=== PATIENT | female | born 1960 | race African-American/Black ===

== ENCOUNTER 2018-01-04 15:01 | Emergency (ER) | payer MEDICAID ==
[~2018-01-04] VITALS: Ht 172.7 cm; Wt 55.8 kg
[~2018-01-04 15:01] MED LIST: TYLENOL EXTRA500 MG ORAL
--- NOTE | 2018-01-04 15:35 | Emergency Room Report ---
History of Present Illness General Chief Complaint: Pain Source: Patient Present Illness HPI 57-year-old female presents to the emergency department complaining of progressive left-sided anterior chest pain x3 days. Patient reports pain with respirations and coughing. Patient states she has a history of high blood pressure and hyperlipidemia for which she has weaned herself off of her medication which she estimates as well a long time ago "patient states her last physical examination and blood work was performed at her previous visit here when she was admitted. She denies regular office visits with her primary care provider. She denies swelling of the lower extremities she reports intermittent mucus production with coughing that she reports to be from postnasal drainage. Denies claudication. Denies taking blood thinning medications. She reports hot flashes and chills however denies fevers she states that she has been seen symptoms of menopause. She states that she believes she sustained rib dislocation approximately 6 months ago when reaching out of a car window at drive[place]through. Patient denies medical evaluation and states that her symptoms resolved until now. Denies Palpitations, LOC, AMS, dizziness, Changes in Vision, Sensation, paresthesias, or a sudden severe headache. Allergies: Coded Allergies: HYDROCODONE (Verified Allergy, Unknown, SWELLING OF FACE, 05/21/10) METOCLOPRAMIDE (Verified Allergy, Unknown, SWELLING OF FACE, 05/21/10) Patient History Past Medical History: see triage record, HTN, other - DVT Past Surgical History: none Now: No Reviewed Nursing Documentation: PMH: Agreed, PSxH: Agreed Nursing Documentation-PMH Past Medical History: No History, Except For Hx Cardiac Problems: Yes Hx Hypertension: Yes Hx Diabetes: Yes Hx Cancer: No Hx Gastrointestinal Problems: Yes Hx Neurological Problems: No Review of Systems All Other Systems: negative except mentioned in HPI Physical Exam Vital Signs Date Time Temp Pulse Resp B/P (MAP) Pulse Ox O2 Delivery O2 Flow Rate FiO2 01/04/18 15:04 98.3 77 18 154/86 97 Room Air 98.2 Sp02 EP Interpretation: reviewed, normal General Appearance: alert, GCS 15, non-toxic, mild distress Head: normocephalic, atraumatic ENT: hearing grossly normal, normal voice Neck: full range of motion Respiratory: lungs clear, normal breath sounds, no rhonchi, no wheezing, stridor, other - TTP to the left lower sternum, and left lower anterior ribs, no lateral rib ttp. no decreased breath sounds Cardiovascular #1: regular rate, rhythm, no edema Gastrointestinal: normal bowel sounds, non tender, soft Musculoskeletal: back normal, gait/station normal, normal range of motion, tender - TTP to the anterior ribcage on the lower left side. Neurologic: alert, oriented x3, responsive, motor strength/tone normal, sensory intact, speech normal, grossly normal Psychiatric: judgement/insight normal Skin: normal color, no rash, warm/dry, well hydrated Medical Decision Making PA Attestation Dr. zhang is my supervising Physician whom patient management has been discussed with. Diagnostic Impression: Primary Impression: Chest pain Qualified Codes: R07.1 - Chest pain on breathing Additional Impression: Chest wall pain ER Course 57-year-old female presents to the emergency department complaining of progressive left-sided anterior chest pain x3 days. Patient reports pain with respirations and coughing. Patient states she has a history of high blood pressure and hyperlipidemia for which she has weaned herself off of her medication which she estimates as well a long time ago "patient states her last physical examination and blood work was performed at her previous visit here when she was admitted. She denies regular office visits with her primary care provider. She denies swelling of the lower extremities she reports intermittent mucus production with coughing that she reports to be from postnasal drainage. Denies claudication. Denies taking blood thinning medications. She reports hot flashes and chills however denies fevers she states that she has been seen symptoms of menopause. She states that she believes she sustained rib dislocation approximately 6 months ago when reaching out of a car window at drive[place]through. Patient denies medical evaluation and states that her symptoms resolved until now. Denies Palpitations, LOC, AMS, dizziness, Changes in Vision, Sensation, paresthesias, or a sudden severe headache. Ddx considered but are not limited to SC, pneumonia, contusion, costochondritis , PE, ACS, Shoulder strain, Chest wall contusion. aortic dissection. Vital signs: are WNL, pt. is afebrile H&PE are most consistent with CP in the setting of multiple cardiac risk factors, and hx of DVT. ORDERS: - EK bpm NSR , no acute ST changes -CBC: unremarkable -CMP: unremarkable -BNP: 124 -WNL -Troponin: 0.00 CXR: Unremarkable -CTA Chest with Contrast: Negative for PE. ED INTERVENTIONS: - PT. placed on cardiac monitoring. - Toradol IV - Zofran IV----PT. began vomiting after IV contrast -Ativan 1mg IV----PT. began vomiting after IV contrast DISCHARGE: At this time pt. is stable for d/c to home. Will provide printed patient care instructions, and any necessary prescriptions. Care plan and follow up instructions have been discussed with the patient prior to discharge. Labs Test 01/04/18 15:55 White Blood Count 7.4 K/UL (4.8-10.8) Red Blood Count 4.70 M/UL (4.20-5.40) Hemoglobin 14.4 G/DL (12.0-16.0) Hematocrit 43.8 % (37.0-47.0) Mean Corpuscular Volume 93 FL (80-99) Mean Corpuscular Hemoglobin 30.7 PG (27.0-31.0) Mean Corpuscular Hemoglobin Concent 33.0 G/DL (32.0-36.0) Red Cell Distribution Width 12.5 % (11.6-14.8) Platelet Count 258 K/UL (150-450) Mean Platelet Volume 7.1 FL (6.5-10.1) Neutrophils (%) (Auto) 59.4 % (45.0-75.0) Lymphocytes (%) (Auto) 31.8 % (20.0-45.0) Monocytes (%) (Auto) 7.1 % (1.0-10.0) Eosinophils (%) (Auto) 0.6 % (0.0-3.0) Basophils (%) (Auto) 1.1 % (0.0-2.0) Sodium Level 140 MMOL/L (136-145) Potassium Level 4.0 MMOL/L (3.5-5.1) Chloride Level 104 MMOL/L (98-107) Carbon Dioxide Level 31 MMOL/L (21-32) Anion Gap 5 mmol/L (5-15) Blood Urea Nitrogen 11 mg/dL (7-18) Creatinine 0.8 MG/DL (0.55-1.30) Estimat Glomerular Filtration Rate > 60 mL/min (>60) Glucose Level 96 MG/DL (74-106) Calcium Level 9.8 MG/DL (8.5-10.1) Total Bilirubin 0.7 MG/DL (0.2-1.0) Aspartate Amino Transf (AST/SGOT) 15 U/L (15-37) Alanine Aminotransferase (ALT/SGPT) 13 U/L (12-78) Alkaline Phosphatase 75 U/L (46-116) Total Creatine Kinase 80 U/L (26-308) Troponin I 0.000 ng/mL (0.000-0.056) Pro-B-Type Natriuretic Peptide 109 pg/mL (0-125) Total Protein 8.3 G/DL (6.4-8.2) Albumin 3.7 G/DL (3.4-5.0) Globulin 4.6 g/dL Albumin/Globulin Ratio 0.8 (1.0-2.7) EKG Diagnostic Results EP Interpretation: Dr. Garcia Rate: normal - 66 bpm Rhythm: NSR ST Segments: no acute changes ASA given to the pt in ED: No PA Scribe Text - EK BPM NSR - no acute ST changes reviewed by Dr. Garcia, this interpretation was scribed by EFRAIN Dickerson Chest X-Ray Diagnostic Results Chest X-Ray Diagnostic Results : Chest X-Ray Ordered: Yes # of Views/Limited/Complete: 1 View Indication: Chest Pain EP Interpretation: Yes PA Xray: Interpretation reviewed, by supervising MD, and agrees with findings. Interpretation: no consolidation, no effusion, no pneumothorax, no acute cardiopulmonary disease Impression: No acute disease Electronically Signed by: Samantha Dickerson PA-C Last Vital Signs Date Time Temp Pulse Resp B/P (MAP) Pulse Ox O2 Delivery O2 Flow Rate FiO2 01/04/18 15:04 98.3 77 18 154/86 97 Room Air 98.2 Disposition: HOME, SELF-CARE Condition: Stable Scripts Ondansetron Odt* (ZOFRAN ODT*) 4 Mg Tab.rapdis 4 MG ORAL Q6H Y for Nausea & Vomiting, #20 TAB Prov: Samantha Dickerson P.A. 01/04/18 Diclofenac Sod* (VOLTAREN*) 50 Mg Tablet.dr 50 MG ORAL THREE TIMES A DAY, #30 TAB Prov: Samantha Dickerson P.A. 01/04/18 Patient Instructions: Chest Contusion, [id number], Chest Wall Pain, Nonspecific Chest Pain, [id number] Additional Instructions: Take medications as directed. Follow up with a Primary Care Provider in 3-5 days, even if your symptoms have resolved. --Please review list of primary care clinics, if you do not already have a primary care provider Return sooner to ED if new symptoms occur, or current symptoms become worse. - Please note that this Emergency Department Report was dictated using [employer] worker technology software, occasionally this can lead to erroneous entry secondary to interpretation by the dictation equipment. Samantha Dickerson Jan 04, 2018 15:35
[2018-01-04 15:53] VITALS: BP 147/77
[2018-01-04 16:03] LABS: BASOPHILS % (AUTO) 1.1 % (0.0-2.0); EOSINOPHILS % (AUTO) 0.6 % (0.0-3.0); HEMATOCRIT 43.8 % (37.0-47.0); HEMOGLOBIN 14.4 G/DL (12.0-16.0); LYMPHOCYTES % (AUTO) 31.8 % (20.0-45.0); MEAN CORPUSCULAR VOLUME 93 FL (80-99); MONOCYTES % (AUTO) 7.1 % (1.0-10.0); NEUTROPHILS % (AUTO) 59.4 % (45.0-75.0); PLATELET COUNT 258 K/UL (150-450); RED CELL DISTRIBUTION WIDTH 12.5 % (11.6-14.8); WHITE BLOOD COUNT 7.4 K/UL (4.8-10.8)
[2018-01-04 16:39] LABS: ANION GAP 5 mmol/L (5-15); BLOOD UREA NITROGEN 11 mg/dL (7-18); CALCIUM 9.8 MG/DL (8.5-10.1); CARBON DIOXIDE 31 MMOL/L (21-32); CHLORIDE 104 MMOL/L (98-107); CREATININE 0.8 MG/DL (0.55-1.30); SODIUM 140 MMOL/L (136-145)
[2018-01-04 16:51] LABS: ALANINE AMINOTRANSFERASE 13 U/L (12-78); ALBUMIN 3.7 G/DL (3.4-5.0); ALBUMIN/GLOBULIN RATIO 0.8 (1.0-2.7); ALKALINE PHOSPHATASE 75 U/L (46-116); ASPARTATE AMINO TRANSFERASE 15 U/L (15-37); BILIRUBIN,TOTAL 0.7 MG/DL (0.2-1.0); CREATINE KINASE 80 U/L (26-308)
[2018-01-04] MEDS ORDERED: Ketorolac 60mg Inj IV ONE (17:45)
[2018-01-04] MEDS ORDERED: LORazepam Inj 2mg/ml 1ml IV ONE (17:45)
[2018-01-04] MEDS ORDERED: ZOFRAN ODT4 MG ORAL (18:32)
[2018-01-04] MEDS ORDERED: DICLOFENAC SODI50 MG ORAL (18:32)
[2018-01-04 19:22] VITALS: BP 130/79
--- NOTE | 2018-01-05 08:52 | Diagnostic Imaging Report ---
ndication: Left anterior chest pain x3 days. Positive history of deep venous thrombosis Technique: IV administration nonionic contrast. Spiral acquisitions obtained from the lung bases to the lung apices. Multiplanar and 3-D reconstructions were generated. Total dose length product 926.76 mGycm. CTDIvol(s) 13.44 mGy. Dose reduction achieved using automated exposure control Comparison: none Findings: There is good quality opacification of the pulmonary arteries. No intraluminal filling defects or other findings to suggest acute pulmonary embolus demonstrated. No thoracic aortic aneurysm or dissection. Normal caliber pulmonary arteries. No evidence of cardiomegaly or right ventricular dilatation. The lungs demonstrate bilateral bullous changes. No infiltrates, effusions, congestion, masses, or nodules demonstrated. No mediastinal or hilar mass or adenopathy. Unremarkable thyroid. No axillary or chest wall mass or adenopathy. Somewhat dilated inferior vena cava and hepatic veins noted. The bones are unremarkable. The included upper abdominal anatomy is unremarkable. Impression: Negative for evidence of acute pulmonary embolus or other acute pulmonary process Evidence of bullous COPD Mild distention of the inferior vena cava and hepatic veins, could indicate central venous hypertension The CT scanner at [facility] is accredited by the [employer] and the scans are performed using protocols designed to limit radiation exposure to as low as reasonably achievable to attain images of sufficient resolution adequate for diagnostic evaluation.
--- NOTE | 2018-01-05 08:53 | Diagnostic Imaging Report ---
Indication: Chest pain Technique: One view of the chest Comparison: 06/28/2009 Findings: Lungs and pleural spaces are clear. Heart size is normal. No significant change Impression: No acute process
--- NOTE | 2018-01-06 08:36 | Cardiology Report ---
APPROVED REPORT EKG Measurement Heart [id number] Normal sinus rhythm Right atrial enlargement Voltage criteria for left ventricular hypertrophy Abnormal ECG
== END 2018-01-04 19:25 | disposition home or self-care (01) ==
LOC: EMR 15:41
DX: R07.89 Other chest pain (principal); I10 Essential (primary) hypertension; E11.9 Type 2 diabetes mellitus without complications; Z88.8 Allergy status to other drugs, medicaments and biological substances
CPT/HCPCS: 36415; 71045; 71275; 80053; 82550; 83880; 84484; 85025; 93005; 96374; 96375; 99284; J2405; Q9967

== ENCOUNTER 2018-06-09 21:27 | Emergency (ER) | payer MEDICAID ==
[~2018-06-09] VITALS: Ht 172.7 cm; Wt 59.0 kg
[~2018-06-09 21:27] MED LIST changes: +DICLOFENAC SODI50 MG ORAL; +ZOFRAN ODT4 MG ORAL
[2018-06-09] MEDS ORDERED: PHENERGAN SUPP25 MG RECTAL (21:34)
[2018-06-09] MEDS ORDERED: TYLENOL EXTRA500 MG ORAL (22:40)
[2018-06-09 22:57] VITALS: BP 0/0
--- NOTE | 2018-06-10 01:10 | Emergency Room Report ---
History of Present Illness General Chief Complaint: Lower Extremity Injury Source: Patient Present Illness HPI 58-year-old female presents ED complaining of pain to left foot. States that 2 days ago she accidentally kicked a wooden fence with her left foot. Notes pain to her toes on left foot. Pain is throbbing, 7 out of 10, nonradiating. Denies any other injuries. No other aggravating relieving factors. Denies any other associated symptoms Allergies: Coded Allergies: HYDROCODONE (Verified Allergy, Unknown, SWELLING OF FACE, 05/21/10) METOCLOPRAMIDE (Verified Allergy, Unknown, SWELLING OF FACE, 05/21/10) Patient History Past Medical History: DM, HTN, ulcer Past Surgical History: none Pertinent Family History: none Social History: Denies: smoking, alcohol use, drug use Last Menstrual Period: n/a Now: No Immunizations: UTD Reviewed Nursing Documentation: PMH: Agreed; PSxH: Agreed Nursing Documentation-PMH Hx Cardiac Problems: Yes Hx Hypertension: Yes Hx Diabetes: Yes Hx Cancer: No Hx Gastrointestinal Problems: Yes - ulcer Hx Neurological Problems: No Review of Systems All Other Systems: negative except mentioned in HPI Physical Exam Vital Signs Date Time Temp Pulse Resp B/P (MAP) Pulse Ox O2 Delivery O2 Flow Rate FiO2 06/09/18 21:30 98.4 85 16 124/77 96 Room Air 98.4 Sp02 EP Interpretation: reviewed, normal General Appearance: no apparent distress, alert, GCS 15, non-toxic Head: normocephalic Eyes: bilateral eye normal inspection, bilateral eye PERRL ENT: normal ENT inspection Neck: normal inspection Respiratory: normal inspection Cardiovascular #1: normal inspection Gastrointestinal: normal inspection Rectal: deferred Genitourinary: no CVA tenderness Musculoskeletal: tender - L 4th toe Neurologic: alert, oriented x3, responsive, motor strength/tone normal, sensory intact, speech normal Psychiatric: normal inspection Skin: normal inspection Lymphatic: normal inspection Procedures Splinting Splinting : Consent: Verbal Pre-Made Type: sam taping Pre-Proc Neuro Vasc Exam: normal Post-Proc Neuro Vasc Exam: normal Patient Tolerated: Well Complications: None Medical Decision Making Diagnostic Impression: Primary Impression: Toe contusion Qualified Codes: S90.122A - Contusion of left lesser toe(s) without damage to nail, initial encounter ER Course Hospital Course 58-year-old F presents to ED complaining of L toes pain Differential diagnoses include: Fracture, dislocation, sprain, contusion Clinical course Patient placed on stretcher. After initial history and physical, I ordered pain medications and Xrays of L foot Xrays prelim read shows no acute fracture/dislocation. 3rd/4th toe sam taped. patient safe for discharge pending close outpatient followup Diagnosis - toe contusion Stable and discharged to home with prescription for Tylenol. apply ice, keep elevated. weight bear as tolerated. Followup with PMD. Return to ED if symptoms recur or worsen Other X-Ray Diagnostic Results Other X-Ray Diagnostic Results : X-Ray ordered: L foot # of Views/Limited Vs Complete: 3 View Indication: Pain EP Interpretation: Yes Interpretation: no dislocation, no soft tissue swelling, no fractures Impression: No acute disease Electronically Signed by: Electronically signed by Johny Garcia MD Last Vital Signs Date Time Temp Pulse Resp B/P (MAP) Pulse Ox O2 Delivery O2 Flow Rate FiO2 06/09/18 22:57 0/0 06/09/18 22:35 98.4 06/09/18 21:30 85 16 96 Room Air Status: improved Disposition: HOME, SELF-CARE Condition: Stable Scripts Acetaminophen* (TYLENOL EXTRA STRENGTH*) 500 Mg Tablet 500 MG ORAL Q8H PRN for Prn Headache/Temp > 101, #30 TAB 0 Refills Prov: Johny Garcia MD 06/09/18 Referrals: [facility],REFERRING (PCP) Patient Instructions: Foot Contusion, Uown-gu-Valo Johny Garcia MD Jun 10, 2018 01:10
--- NOTE | 2018-06-10 11:40 | Diagnostic Imaging Report ---
Indication: Pain in third and fourth toes Technique: 3 views of the left toes Comparison: none Findings: No acute fractures. No dislocations. The joint spaces are preserved. Impression: Negative This agrees with the preliminary interpretation provided by the emergency room physician
== END 2018-06-09 22:57 | disposition home or self-care (01) ==
LOC: EMR 22:00
DX: S90.122A Contusion of left lesser toe(s) without damage to nail, initial encounter (principal); W22.8XXA Striking against or struck by other objects, initial encounter; Y92.9 Unspecified place or not applicable; I10 Essential (primary) hypertension; E11.9 Type 2 diabetes mellitus without complications; Z88.8 Allergy status to other drugs, medicaments and biological substances; Z88.5 Allergy status to narcotic agent; Z87.19 Personal history of other diseases of the digestive system
CPT/HCPCS: 99283

== ENCOUNTER 2018-11-03 21:39 | Emergency (ER) | payer MEDICARE, MEDICAID ==
[~2018-11-03] VITALS: Ht 172.7 cm; Wt 55.3 kg
[~2018-11-03 21:39] MED LIST changes: +PHENERGAN SUPP25 MG RECTAL
[2018-11-03] MEDS ORDERED: ACETAMINOPHEN-1 EAC2 ORAL (21:53)
[2018-11-03] MEDS ORDERED: VALIUM10 MG ORAL (21:53)
[2018-11-03 21:56] VITALS: BP 126/78
[2018-11-03] MEDS ORDERED: Morphine Sulfate 4mg/ml Inj (IV/IM USE ONLY) IVP ONE (22:15)
[2018-11-03] MEDS ORDERED: Isovue-300 100ml vial INJ PRN (22:15)
[2018-11-03 22:43] LABS: APPEARANCE,URINE CLEAR; BILIRUBIN, URINE NEGATIVE (NEGATIVE); COLOR,URINE YELLOW; GLUCOSE, URINE (UA) NEGATIVE (NEGATIVE); KETONES,URINE 1+ (NEGATIVE); LEUKOCYTE ESTERASE ,URINE 1+ (NEGATIVE); NITRITE,URINE NEGATIVE (NEGATIVE); PH,URINE 6 (4.5-8.0); PROTEIN,URINE NEGATIVE (NEGATIVE); UROBILINOGEN,URINE 1 MG/DL (0.0-1.0)
[2018-11-03 22:43] LABS: BASOPHILS % (AUTO) 0.8 % (0.0-2.0); EOSINOPHILS % (AUTO) 0.5 % (0.0-3.0); HEMATOCRIT 40.9 % (37.0-47.0); HEMOGLOBIN 13.3 G/DL (12.0-16.0); MEAN CORPUSCULAR VOLUME 95 FL (80-99); MONOCYTES % (AUTO) 6.2 % (1.0-10.0); NEUTROPHILS % (AUTO) 56.6 % (45.0-75.0); PLATELET COUNT 192 K/UL (150-450); RED BLOOD COUNT 4.29 M/UL (4.20-5.40); RED CELL DISTRIBUTION WIDTH 12.7 % (11.6-14.8)
[2018-11-03 22:52] LABS: ANION GAP 5 mmol/L (5-15); BLOOD UREA NITROGEN 9 mg/dL (7-18); CALCIUM 9.4 MG/DL (8.5-10.1); CARBON DIOXIDE 31 MMOL/L (21-32); CHLORIDE 105 MMOL/L (98-107); CREATININE 0.9 MG/DL (0.55-1.30); POTASSIUM 4.1 MMOL/L (3.5-5.1); SODIUM 141 MMOL/L (136-145)
[2018-11-03 22:57] LABS: ALANINE AMINOTRANSFERASE 15 U/L (12-78); ALBUMIN 3.6 G/DL (3.4-5.0); ALBUMIN/GLOBULIN RATIO 0.8 (1.0-2.7); ALKALINE PHOSPHATASE 60 U/L (46-116); ASPARTATE AMINO TRANSFERASE 13 U/L (15-37); BILIRUBIN,TOTAL 0.9 MG/DL (0.2-1.0)
--- NOTE | 2018-11-03 23:27 | Emergency Room Report ---
History of Present Illness General Chief Complaint: Abdominal Pain Source: Patient Present Illness HPI 58-year-old female presents ED for evaluation. Complaining of abdominal pain starting yesterday. Sharp, 7 out of 10, nonradiating. Localized to right lower quadrant. Comes and goes. Denies nausea or vomiting. Denies fevers or chills. Denies diarrhea. No other aggravating relieving factors. Denies any other associated symptoms Allergies: Coded Allergies: HYDROCODONE (Verified Allergy, Unknown, SWELLING OF FACE, 05/21/10) METOCLOPRAMIDE (Verified Allergy, Unknown, SWELLING OF FACE, 05/21/10) Patient History Past Medical History: DM, HTN, ulcer Past Surgical History: none Pertinent Family History: none Social History: Denies: smoking, alcohol use, drug use Last Menstrual Period: 1 decade ago Now: No Immunizations: UTD Reviewed Nursing Documentation: PMH: Agreed; PSxH: Agreed Nursing Documentation-PMH Hx Cardiac Problems: Yes Hx Hypertension: Yes Hx Diabetes: Yes Hx Cancer: No Hx Gastrointestinal Problems: Yes - ulcer Hx Neurological Problems: No Review of Systems All Other Systems: negative except mentioned in HPI Physical Exam Vital Signs Date Time Temp Pulse Resp B/P (MAP) Pulse Ox O2 Delivery O2 Flow Rate FiO2 11/03/18 21:47 98.4 88 16 131/72 95 Room Air Sp02 EP Interpretation: reviewed, normal General Appearance: no apparent distress, alert, GCS 15, non-toxic Head: normocephalic, atraumatic Eyes: bilateral eye normal inspection, bilateral eye PERRL ENT: hearing grossly normal, normal pharynx, no angioedema, normal voice Neck: full range of motion, supple/symm/no masses Respiratory: chest non-tender, lungs clear, normal breath sounds, speaking full sentences Cardiovascular #1: regular rate, rhythm, no edema Cardiovascular #2: 2+ carotid (R), 2+ carotid (L), 2+ radial (R), 2+ radial (L) , 2+ dorsalis pedis (R), 2+ dorsalis pedis (L) Gastrointestinal: normal bowel sounds, soft, non-distended, no guarding, no rebound, tenderness Rectal: deferred Genitourinary: normal inspection, no CVA tenderness Musculoskeletal: back normal, gait/station normal, normal range of motion, non- tender Neurologic: alert, oriented x3, responsive, motor strength/tone normal, sensory intact, speech normal Psychiatric: judgement/insight normal, memory normal, mood/affect normal, no suicidal/homicidal ideation Reflexes: 3+ bicep (R), 3+ bicep (L), 3+ tricep (R), 3+ tricep (L), 3+ knee (R) , 3+ knee (L) Skin: normal color, no rash, warm/dry, well hydrated Lymphatic: no adenopathy Medical Decision Making Diagnostic Impression: Primary Impression: SMAS (superior mesenteric artery syndrome) Additional Impression: Intractable abdominal pain ER Course Hospital Course 58 yo F presents with abd pain and vomiting Differential diagnoses include: BPH, cystitis, pyelonephritis, kidney stone Clinical course Patient placed on stretcher. cardiac monitor technician. After initial history and physical I ordered labs, IV fluids, UA, pain medication and CT scan Labs - no leukocytosis, Hb/Hct stable, electroytes ok CT abdomen and pelvis - discussed case with Dr Altamirano (surgery); agrees that patient will require admission for serial exams. recommends lactic acid draw Patient continues to have pain but not in significant distress. No guarding or rebound. Abdomen is nonrigid Lactic acid normal Because of insurance patient will be transferred I feel this is a highly complex case requiring extensive working including EKG/ Rhythm strip, Xray/CT/US, Blood/urine lab work, repeat exams while in ED, and administration of strong opiates/narcotics for pain control, admission to hospital or close patient follow up. Diagnosis - SMA syndrome, int[facility] Labs Test 11/03/18 22:05 11/03/18 22:17 Urine Color Yellow Urine Appearance Clear Urine pH 6 (4.5-8.0) Urine Specific [place] 1.015 (1.005-1.035) Urine Protein Negative (NEGATIVE) Urine Glucose (UA) Negative (NEGATIVE) Urine Ketones 1+ (NEGATIVE) Urine Blood Negative (NEGATIVE) Urine Nitrite Negative (NEGATIVE) Urine Bilirubin Negative (NEGATIVE) Urine Urobilinogen 1 MG/DL (0.0-1.0) Urine Leukocyte Esterase 1+ (NEGATIVE) Urine RBC 0-2 /HPF (0 - 2) Urine WBC 2-4 /HPF (0 - 2) Urine Squamous Epithelial Cells Few /LPF (NONE/OCC) Urine Bacteria Few /HPF (NONE) Urine Mucus Moderate /LPF (NONE/OCC) White Blood Count 8.0 K/UL (4.8-10.8) Red Blood Count 4.29 M/UL (4.20-5.40) Hemoglobin 13.3 G/DL (12.0-16.0) Hematocrit 40.9 % (37.0-47.0) Mean Corpuscular Volume 95 FL (80-99) Mean Corpuscular Hemoglobin 31.0 PG (27.0-31.0) Mean Corpuscular Hemoglobin Concent 32.5 G/DL (32.0-36.0) Red Cell Distribution Width 12.7 % (11.6-14.8) Platelet Count 192 K/UL (150-450) Mean Platelet Volume 6.8 FL (6.5-10.1) Neutrophils (%) (Auto) 56.6 % (45.0-75.0) Lymphocytes (%) (Auto) 36.0 % (20.0-45.0) Monocytes (%) (Auto) 6.2 % (1.0-10.0) Eosinophils (%) (Auto) 0.5 % (0.0-3.0) Basophils (%) (Auto) 0.8 % (0.0-2.0) Sodium Level 141 MMOL/L (136-145) Potassium Level 4.1 MMOL/L (3.5-5.1) Chloride Level 105 MMOL/L (98-107) Carbon Dioxide Level 31 MMOL/L (21-32) Anion Gap 5 mmol/L (5-15) Blood Urea Nitrogen 9 mg/dL (7-18) Creatinine 0.9 MG/DL (0.55-1.30) Estimat Glomerular Filtration Rate > 60 mL/min (>60) Glucose Level 94 MG/DL (74-106) Calcium Level 9.4 MG/DL (8.5-10.1) Total Bilirubin 0.9 MG/DL (0.2-1.0) Aspartate Amino Transf (AST/SGOT) 13 U/L (15-37) Alanine Aminotransferase (ALT/SGPT) 15 U/L (12-78) Alkaline Phosphatase 60 U/L (46-116) Total Protein 8.2 G/DL (6.4-8.2) Albumin 3.6 G/DL (3.4-5.0) Globulin 4.6 g/dL Albumin/Globulin Ratio 0.8 (1.0-2.7) Lipase 172 U/L (73-393) CT/MRI/US Diagnostic Results CT/MRI/US Diagnostic Results : Imaging Test Ordered: CT A/P Impression Mild to moderate distention of the stomach and duodenum to the level of the abdominal aorta and acute angulation of the SMA takeoff from the aorta consistent with SMA syndrome. Last Vital Signs Date Time Temp Pulse Resp B/P (MAP) Pulse Ox O2 Delivery O2 Flow Rate FiO2 11/03/18 21:47 98.4 88 16 131/72 95 Room Air Status: improved Disposition: XFER T-[facility] Condition: Serious Referrals: NON PHYSICIAN (PCP) Johny Garcia MD Nov 03, 2018 23:27
[2018-11-04] MEDS ORDERED: Morphine Sulfate 4mg/ml Inj (IV/IM USE ONLY) IVP ONE (01:15)
[2018-11-04 05:30] VITALS: BP 130/70
--- NOTE | 2018-11-04 09:30 | Diagnostic Imaging Report ---
Clinical Indication: Abdominal pain Technique: Patient ingested a small amount of oral contrast. IV administration nonionic contrast. Venous phase spiral acquisition obtained through the abdomen and pelvis. Multiplanar reconstructions were generated. Total dose length product 429.68 mGycm. CTDIvol(s) 8.96 mGy. Dose reduction achieved using automated exposure control Comparison: 11/30/2010 Findings: The appendix appears normal. No evidence of diverticulosis or diverticulitis. No small bowel distention. Note that ingested contrast only fills the stomach. There is suggestion of wall thickening of the duodenum. No free or loculated intraperitoneal gas or fluid is evident. The distal esophagus is unremarkable. The liver is unremarkable. There is some distention of the inferior vena cava and hepatic veins. The gallbladder, bile ducts, pancreas, spleen, adrenals, left kidney are unremarkable. Right kidney demonstrates a subcentimeter low-attenuation lesion which is too small to characterize but unchanged. No retroperitoneal or mesenteric mass or adenopathy. No pelvic mass or adenopathy. The included lung bases demonstrate some small cystic spaces. There is scarring at the right lung base. There is some atelectasis or scarring at the left lung base. The bones demonstrate degenerative spondylosis changes at the lumbosacral junction. Impression: Mild duodenal wall thickening, could indicate peptic ulcer disease or duodenitis. Evidence of gastric contrast outflow, without definite obstructive pathology, could be related to disordered motility. No other acute abnormality Distention of the inferior vena cava and hepatic veins, could indicate central venous hypertension Small right renal cyst Scarring and COPD changes at the lung bases Minimal degenerative spondylosis Findings represent a slight discrepancy from [facility] preliminary report, which described superior mesenteric artery syndrome rather than duodenitis. The duodenum does not appear to be significantly compressed. Findings were discussed by phone with Dr. Chandler in the emergency room at the time of interpretation The CT scanner at [facility] is accredited by the [employer] and the scans are performed using protocols designed to limit radiation exposure to as low as reasonably achievable to attain images of sufficient resolution adequate for diagnostic evaluation.
== END 2018-11-04 06:28 | disposition short-term general hospital (02) ==
LOC: EMR 22:04
DX: R10.31 Right lower quadrant pain (principal); K55.1 Chronic vascular disorders of intestine; E11.9 Type 2 diabetes mellitus without complications; I10 Essential (primary) hypertension; Z88.5 Allergy status to narcotic agent; Z88.8 Allergy status to other drugs, medicaments and biological substances; Z87.11 Personal history of peptic ulcer disease; Z86.79 Personal history of other diseases of the circulatory system
CPT/HCPCS: 36415; 74177; 80053; 81003; 83605; 83690; 85025; 96374; 96375; 96376; 99284; J2270; J2405; Q9967